=== PATIENT | female | born 1960 | race Hispanic/Latino ===

== ENCOUNTER 2018-10-31 18:34 | Emergency (ER) | payer OTHER ==
[2018-10-31 18:35] VITALS: BMI 24.0
--- NOTE | 2018-10-31 19:24 | ED PDOC ---
Arrival/HPI - General Chief Complaint: Weakness/Neurological Deficit Time Seen by Provider: 10/31/18 19:15 - History of Present Illness Narrative History of Present Illness (Text): 10/31/18 19:19 58 y/o F w/ h/o DM 1, HTN, musculoskeletal disease, gastroparesis presenting to the Emergency Room for symptoms of left sided facial tingling. The patient stat es she was feeling symptoms of left sided facial tingling around the periorbital area that began around 14:30hrs today at home. She saw her PMD, Dr. Recio who referred her to an opthmologist who diagnosed her with ocular migraine. She recalls her opthomologist checking her retina and saw no progression of venous dilation since her last visit, but suggested she present to the Emergency Room for her new facial parasthesias. She reports a brief episode of left sided visual blurriness that was self-limited in nature. She denies vision loss, headache, dysarthria, facial asymmetry, tinnitus, motor weakness, decreased sensation, nausea or emesis. PCP: Dr. Barber Specialist: Dr. Tremayne Pineda(neurology), Dr. Laguna(GI) Time/Duration: 4-6 hours Symptom Onset: Gradual Symptom Course: Unchanged Activities at Onset: Rest Context: Home Past Medical History - Provider Review Nursing Documentation Reviewed: Yes - Travel History Have you recently traveled outside [place] w/in the past 3 mons?: No - Infectious Disease Hx of Infectious Diseases: None - Tetanus Immunization Tetanus Immunization: >10 years Ago - Reproductive Menopause: Yes Currently : No - Cardiac Hx Hypertension: Yes - Endocrine/Metabolic Hx Diabetes Mellitus Type 1: Yes Hx Hypothyroidism: Yes Other/Comment: [place] disease - Hematological/Oncological Hx Blood Transfusions: No Hx Blood Transfusion Reaction: No - Musculoskeletal/Rheumatological Hx Falls: No - Psychiatric Hx Depression: No Hx Emotional Abuse: No Hx Physical Abuse: No Hx Substance Use: No - Surgical History Hx Section: Yes - Anesthesia Hx Anesthesia Reactions: No Hx Malignant Hyperthermia: No - Suicidal Assessment Feels Threatened In Home Enviroment: No Family/Social History - Physician Review Nursing Documentation Reviewed: Yes Family/Social History: Unknown Family HX Smoking Status: Never Smoked Hx Alcohol Use: No Hx Substance Use: No Hx Substance Use Treatment: No Allergies/Home Meds Allergies/Adverse Reactions: Allergies amoxicillin [From Augmentin] Allergy (Verified 10/31/18 19:09) RASH clavulanic acid [From Augmentin] Allergy (Verified 10/31/18 19:09) RASH epinephrine Allergy (Verified 10/31/18 19:09) RASH fluticasone [From Advair Diskus] Allergy (Verified 10/31/18 19:09) RASH levofloxacin [From Levaquin] Allergy (Verified 10/31/18 19:09) RASH metronidazole [From Flagyl] Allergy (Verified 10/31/18 19:09) RASH salmeterol [From Advair Diskus] Allergy (Verified 10/31/18 19:09) RASH telithromycin [From Ketek] Allergy (Verified 10/31/18 19:09) CONGESTION Home Medications: Home Meds Medication Instructions Recorded Confirmed Albuterol HFA [Albuterol] 0.09 mg IH PRN PRN 10/26/12 09/27/13 Aspirin [Ecotrin] 81 mg PO DAILY 10/26/12 09/27/13 Celecoxib [Celebrex] 200 mg PO BID 10/26/12 09/27/13 Esomeprazole Magnesium [Nexium] 40 mg PO DAILY 10/26/12 09/27/13 Hydrocortisone [Cortef] 0 mg PO BID 10/26/12 09/27/13 Insulin Aspart, Recombinant 100 unit SC TID 10/26/12 09/27/13 [Novolog] Insulin Glargine,Hum.rec.anlog 0 unit SC BID 10/26/12 09/27/13 [Lantus] Levothyroxine Sodium [Levoxyl] 0.088 mg PO DAILY 10/26/12 09/27/13 RX: Methocarbamol 500 mg PO BID 10/26/12 09/27/13 RX: hydroCHLOROthiazide [Microzide] 12.5 mg PO DAILY 10/26/12 09/27/13 Review of Systems - Physician Review All systems were reviewed & negative as marked: Yes - Review of Systems Eyes: Vision Changes. absent: Photophobia, Eye Pain Neurological: Dizziness. absent: Headache, Focal Weakness, Gait Changes, Speech Changes, Facial Droop, Disequilibrium Physical Exam Vital Signs Reviewed: Yes Vital Signs Temp Pulse Resp BP Pulse Ox 10/31/18 18:57 98.4 F 73 20 146/80 99 Temperature: Afebrile Blood Pressure: Normal Pulse: Regular Respiratory Rate: Normal Appearance: Positive for: Well-Appearing, Non-Toxic, Comfortable Mental Status: Positive for: Alert and Oriented X 3 Finger Stick Blood Glucose: 331 - Systems Exam Head: Present: Atraumatic, Normocephalic Pupils: Present: PERRL Extroacular Muscles: Present: EOMI Conjunctiva: Present: Normal Mouth: Present: Moist Mucous Membranes Neck: Present: Normal Range of Motion Respiratory/Chest: Present: Clear to Auscultation, Good Air Exchange. No: Respiratory Distress, Wheezes, Rales, Retracting, Rhonchi Cardiovascular: Present: Regular Rate and Rhythm, Normal S1, S2. No: Murmurs Abdomen: Present: Normal Bowel Sounds. No: Tenderness, Distention Neurological: Present: GCS=15, CN II-XII Intact, Speech Normal, Motor Func Grossly Intact, Normal Sensory Function, Memory Normal, Other (Negative pronator drift, normal finger to nose b/l) Skin: Present: Warm, Dry, Normal Color. No: Rashes Psychiatric: Present: Alert, Oriented x 3, Normal Insight, Normal Concentration Medical Decision Making ED Course and Treatment: 10/31/18 20:13 Impression 58 y/o F w/ h/o DM I, HTN and gastroparesis presenting for left sided facial tingling Differential Diagnoses Include But Is Not Limited To: --TIA/CVA --CRVO(central retinal venous occlusion) --Occular migraine Plan --Labs --CTH --UA --CXR --Neurology consult --Reassess & disposition Progress Notes 10/31/18 19:36 Code stroke called. 10/31/18 19:55 No evidence of intracranial bleed. CT results reviewed with Dr Sheppard(neurology), no clinical symptoms shown, and he agrees no TPA to be administered at this time. Patient updated on CT findings and is relieved. 11/04/18 20:55 Patient is refusing additional medical intervention to be performed at this time. She wishes to sign out Against Medical Advice and is updated on the risks vs benefits of leaving prior to completion of medical evaluation. She demonstrates understanding and desires to sign consent forms anyway. Consent forms signed as well as encouragement for patient to return to Emergency Room if symptoms persists. - Lab Interpretations Lab Results: 10/31/18 20:02 10/31/18 20:02 Lab Results 10/31/18 20:02: Hemoglobin A1c 10.8 H 10/31/18 20:02: Sodium 135, Potassium 4.1, Chloride 97 L, Carbon Dioxide 30, Anion Gap 13, BUN 31 H, Creatinine 1.1, Est GFR ( Amer) > 60, Est GFR (N on-Af Amer) 51, Random Glucose 298 H, Calcium 9.6, Total Bilirubin 0.5, AST 33, ALT 16, Alkaline Phosphatase 114, Troponin I < 0.01, Total Protein 7.9, Albumin 4.5, Globulin 3.4, Albumin/Globulin Ratio 1.3, Triglycerides 74, Cholesterol 245 H, LDL Cholesterol Direct 105, HDL Cholesterol 99 H 10/31/18 20:02: PT 10.7, INR 0.96, APTT 31.0 10/31/18 20:02: WBC 8.2, RBC 4.34, Hgb 12.9, Hct 39.1, MCV 90.1, MCH 29.7, MCHC 33.0, RDW 13.1, Plt Count 276, MPV 10.3, Neut % (Auto) 73.3 H, Lymph % (Auto) 19.3 L, [place] % (Auto) 6.7 H, Eos % (Auto) 0.5 L, Baso % (Auto) 0.2, Lymph # (Auto) 1.6, [place] # (Auto) 0.6, Eos # (Auto) 0.0, Baso # (Auto) 0.02, Absolute Neuts (auto) 5.98 10/31/18 20:00: Urine Color Yellow, Urine Appearance Clear, Urine pH 6.0, Ur Specific [place] 1.015, Urine Protein Negative, Urine Glucose (UA) 500 H, Urine Ketones Negative, Urine Blood Negative, Urine Nitrate Negative, Urine Bilirubin Negative, Urine Urobilinogen 0.2, Ur Leukocyte Esterase Negative I have reviewed the lab results: Yes - RAD Interpretation Narrative RAD Interpretations (Text): 10/31/18 20:31 CT Head without Intravenous Contrast. CLINICAL HISTORY: HEADACHE TECHNIQUE: Axial computed tomography images of the head/brain without intravenous contrast. 870.78 mGy-cm CONTRAST: Without COMPARISON: None provided. FINDINGS: BRAIN No acute intraparenchymal hemorrhage. No mass lesion. No abnormal enhancement. No CT evidence for acute territorial infarct. No midline shift or extra-axial collections. VENTRICLES: No hydrocephalus. ORBITS: The orbits are unremarkable. SINUSES AND MASTOIDS: The paranasal sinuses and mastoid air cells are clear. BONES: No fracture. IMPRESSION: No acute intracranial abnormality. Radiology Orders: 10/31/18 19:16 CHEST PORTABLE [RAD] Stat 10/31/18 19:18 HEAD W/O CONTRAST [CT] Stat Line Maintenance Supervisor: Radiologist rTPA Inclusion/Exclusion - Refusal of Treatment Patient Refused Treatment: No - Inclusion Criteria for Altepase Patient is 18 years or Older: Yes The Clinical Diagnosis of Ischemic Stroke That is Causing a Potentially Disabling Neurological Deficit: No Time of Onset is Well Established to be Less Than 270 Minute Before Treatment Would Begin: Yes Risk/Benefit Discussed With Patient/Family Member Present: Yes - Exclusion Criteria for Altepase Uncontrolled Hypertension at Time of Treatment (Systolic BP above 185 or Diastolic BP above 110 mmHg): No NIHSS Stroke Scale 3 - Date/Time Evaluation Performed Date Performed: 10/31/18 Time Performed: 19:36 When Was NIHSS Performed: Baseline - How Severe is the Stroke Level of Consciousness: 0=Alert LOC to Questions: 0=Both comments correct LOC to commands: 0=Obeys both correctly Best Gaze: 0=Normal Visual: 0=No visual loss Facial: 0=Normal Motor Arm - Left: 0=No drift Motor Arm - Right: 0=No drift Motor Leg - Left: 0=No drift Motor Leg - Right: 0=No drift Limb Ataxia: 0=Absent Sensory: 1=Mild to moderate loss Best Language: 0=No aphasia Dysarthia: 0=Normal articulation Extinction & Inattention (Neglect): 0=Normal, no object Score: 1 Disposition/Present on Arrival - Present on Arrival Any Indicators Present on Arrival: No History of DVT/PE: No History of Uncontrolled Diabetes: No Urinary Catheter: No History of Decub. Ulcer: No History Surgical Site Infection Following: None - Disposition Have Diagnosis and Disposition been Completed?: Yes Diagnosis: Ocular migraine Disposition: AGAINST MEDICAL ADVICE Disposition Time: 20:55 Condition: STABLE Forms: [employer] ([place])
[2018-10-31 20:02] LABS: URINE BILIRUBIN NEGATIVE (NEGATIVE); URINE BLOOD NEGATIVE (NEGATIVE); URINE GLUCOSE (UA) 500 mg/dL (NEGATIVE); URINE LEUKOCYTE ESTERASE NEGATIVE Leu/uL (NEGATIVE); URINE PROTEIN NEGATIVE mg/dL (<30 mg/dL); URINE UROBILINOGEN 0.2 E.U./dL (<1 E.U./dL)
[2018-10-31 20:03] LABS: URINE APPEARANCE CLEAR (CLEAR); URINE COLOR YELLOW (YELLOW)
[2018-10-31 20:06] LABS: BASO # 0.02 K/mm3 (0.0-2.0); BASO % 0.2 % (0.0-3.0); EOS % 0.5 % (1.5-5.0); HEMOGLOBIN 12.9 g/dL (12.0-16.0); LYMPH # 1.6 (1.2-3.4); LYMPH % 19.3 % (22.0-35.0); MEAN CELL VOLUME 90.1 fl (80.0-105.0); MEAN CORPUSCULAR HEMOGLOBIN 29.7 pg (25.0-35.0); MEAN PLATELET VOLUME 10.3 fl (7.0-11.0); MONO # 0.6 (0.1-0.6); MONO % 6.7 % (1.0-6.0); RBC 4.34 10^6/uL (3.5-6.1); RED CELL DISTRIBUTION WIDTH 13.1 % (11.5-14.5); WHITE BLOOD COUNT 8.2 10^3/uL (4.5-11.0)
[2018-10-31 20:18] LABS: ALB/GLOB RATIO 1.3 (1.1-1.8); ALBUMIN 4.5 g/dL (3.0-4.8); ALT/SGPT 16 U/L (7-56); AST/SGOT 33 U/L (14-36); BLOOD UREA NITROGEN 31 mg/dL (7-21); CALCIUM 9.6 mg/dL (8.4-10.5); GFR NON-AFRICAN AMERICAN 51; HDL CHOLESTEROL 99 mg/dL (29-60)
[2018-10-31 20:23] LABS: INR 0.96; PROTHROMBIN TIME 10.7 SECONDS (9.4-12.5)
[2018-10-31 20:28] LABS: TROPONIN I < 0.01 ng/mL
[2018-10-31 20:29] LABS: LDL CHOLESTEROL 105 mg/dL (0-129)
[2018-10-31 21:23] VITALS: RESP 18
[2018-10-31 21:25] VITALS: BP 133/78; PULSE 70; TEMP 98.1; O2SAT 99
--- NOTE | 2018-11-01 08:05 | CT ---
Date of service: 10/31/2018 PROCEDURE: CT HEAD WITHOUT CONTRAST. HISTORY: headache COMPARISON: None available. TECHNIQUE: Axial computed tomography images were obtained through the head/brain without intravenous contrast. Radiation dose: Total exam DLP = 870.78 mGy-cm. This CT exam was performed using one or more of the following dose reduction techniques: Automated exposure control, adjustment of the mA and/or kV according to patient size, and/or use of iterative reconstruction technique. FINDINGS: HEMORRHAGE: No intracranial hemorrhage. BRAIN: No mass effect or edema. No atrophy or chronic microvascular ischemic changes. VENTRICLES: Unremarkable. No hydrocephalus. CALVARIUM: Unremarkable. PARANASAL SINUSES: Unremarkable as visualized. No significant inflammatory changes. MASTOID AIR CELLS: Unremarkable as visualized. No inflammatory changes. OTHER FINDINGS: The report concurs with the preliminary [facility] report IMPRESSION: No acute intracranial abnormality
--- NOTE | 2018-11-01 08:25 | RAD ---
Date of service: 10/31/2018 HISTORY: Code Stroke COMPARISON: No prior. FINDINGS: LUNGS: No active pulmonary disease. PLEURA: No significant pleural effusion identified, no pneumothorax apparent. CARDIOVASCULAR: No aortic atherosclerotic calcification present. Normal cardiac size. No pulmonary vascular congestion. OSSEOUS STRUCTURES: No significant abnormalities. VISUALIZED UPPER ABDOMEN: Normal. OTHER FINDINGS: None. IMPRESSION: No active disease.
--- NOTE | 2018-11-01 10:19 | CARD ---
APPROVED REPORT Date of service: 10/31/2018 EKG Measurement Heart [id number] <Conclusion> Normal sinus rhythm Normal ECG
== END 2018-10-31 20:55 | disposition left against medical advice (07) ==
LOC: ED 18:34
DX: G43.109 Migraine with aura, not intractable, without status migrainosus (principal)